=== PATIENT | female | born 1960 | race African-American/Black ===

== ENCOUNTER 2021-02-10 09:47 | Inpatient (IN) ==
[2021-02-10 11:01] LABS: Basophils % 0.4 % (0.0-0.8); Eosinophils # 0.2 10*3/uL (0.0-0.87); Eosinophils % 2.7 % (0.00-10.9); Hematocrit 34.5 VOL% (35.7-47.0); Hemoglobin 11.3 GM/DL (12.0-16.0); Immature Granulocytes % 0.3 %; Immature Granulocytes Absolute 0.02 #; Lymphocytes % 29.1 % (21.3-54.2); Mean Corpuscular HGB Conc 32.8 GM/DL (32-36); Mean Corpuscular Volume 94.3 FL (87-102); Mean Platelet Volume 11.4 FL (9.6-12.0); Monocytes % 9.5 % (1.7-12.7); Platelet Count 277 T/CUMM (130-400); Red Blood Count 3.66 MC/CUMM (3.8-5.5); Red Cell Distribution Width 12.3 % (9.3-17.3); White Blood Count 6.9 T/CUMM (4-12)
[2021-02-10 11:14] LABS: Albumin 3.9 G/DL (3.4-5.0); Bilirubin,Total 0.6 MG/DL (0.20-1.00); Osmolality,Calculated 266.1 MOS/KG (273-304); Potassium 3.8 MMOL/L (3.5-5.1); Total Protein 8.6 G/DL (6.4-8.2)
[2021-02-10] MEDS ORDERED: FAMOTIDINE 20 MG TABLET ONE (13:37)
[2021-02-10] MEDS ORDERED: FAMOTIDINE 20 MG TABLET PO STA (13:39)
[2021-02-10] MEDS ORDERED: LIDOCAINE 2% 5 ML VIAL ONE (13:46)
[2021-02-10] MEDS ORDERED: propofoL 200 MG/20 ML VIAL IV ONE (13:46)
[2021-02-10] MEDS ORDERED: ONDANSETRON 4 MG/2 ML VIAL ONE (13:46)
[2021-02-10] MEDS ORDERED: MIDAZOLAM 2 MG/2 ML VIAL ONE (13:48)
[2021-02-10] MEDS ORDERED: fentaNYL 100 MCG/2 ML VIAL ONE (13:48)
[2021-02-10] MEDS ORDERED: SEVOFLURANE 1 UNIT/15 MINUTE INH ONE ×2 (13:55→14:45)
[2021-02-10] MEDS ORDERED: DEXAMETHASONE 4 MG/1 ML VIAL ONE ×2 (13:55→14:44)
[2021-02-10] MEDS ORDERED: ACETAMINOPHEN INJ 1,000 MG/100 ML VIAL IV ONE (14:23)
[2021-02-10] MEDS ORDERED: KETOROLAC 30 MG/1 ML VIAL ONE (14:23)
[2021-02-10] MEDS ORDERED: ePHEDrine 50 MG/ML VIAL ONE (14:35)
[2021-02-10] MEDS ORDERED: LACTATED RINGERS 1,000 ML IV ONE (14:45)
[2021-02-10] MEDS ORDERED: BUPIVACAINE LIPOSOMAL 20 ML/266 MG VIAL ONE (14:49)
[2021-02-10] MEDS ORDERED: ACETAMINOPHEN 325 MG TABLET PO PRN (15:05)
[2021-02-10] MEDS ORDERED: HYDROmorphone 2 MG/1 ML VIAL IV PRN (15:05)
[2021-02-11 05:22] LABS: Basophils % 0.1 % (0.0-0.8); Hematocrit 31.2 VOL% (35.7-47.0); Hemoglobin 10.4 GM/DL (12.0-16.0); Immature Granulocytes % 0.4 %; Immature Granulocytes Absolute 0.04 #; Lymphocytes # 1.3 10*3/uL (1.4-4.0); Mean Corpuscular HGB Conc 33.3 GM/DL (32-36); Mean Corpuscular Volume 93.4 FL (87-102); Mean Platelet Volume 11.8 FL (9.6-12.0); Monocytes % 6.8 % (1.7-12.7); Neutrophils % 79.7 % (38.7-73.9); Platelet Count 258 T/CUMM (130-400); Red Blood Count 3.34 MC/CUMM (3.8-5.5); Red Cell Distribution Width 12.2 % (9.3-17.3); White Blood Count 9.8 T/CUMM (4-12)
[2021-02-11 05:44] LABS: Calcium 8.6 MG/DL (8.5-10.1); Osmolality,Calculated 270.8 MOS/KG (273-304); Potassium 3.8 MMOL/L (3.5-5.1)
[2021-02-11 11:42] VITALS: BP 100/51
== END 2021-02-11 13:40 | disposition home or self-care (01) | DRG 607 ==
LOC: N.ED 09:47 → N.EDINP 15:05 → N.3E 15:15
PROVIDERS: ADMIT Student in an Organized Health Care Education/Training Program; ATTEND Student in an Organized Health Care Education/Training Program

== ENCOUNTER 2022-06-11 01:44 | Inpatient (IN) ==
[2022-06-11] MEDS ORDERED: HYDROmorphone 1 MG/1 ML SYRINGE IV STA (02:17)
[2022-06-11] MEDS ORDERED: SODIUM CHLORIDE 0.9% 1,000 ML IV STA (02:17)
[2022-06-11] MEDS ORDERED: ONDANSETRON 4 MG/2 ML VIAL IV STA (02:17)
[2022-06-11 03:03] LABS: Basophils % 0.2 % (0.0-0.8); Eosinophils % 0.1 % (0.00-10.9); Hemoglobin 8.4 GM/DL (12.0-16.0); Immature Granulocytes Absolute 0.51 #; Lymphocytes # 1.1 10*3/uL (1.4-4.0); Lymphocytes % 4.1 % (21.3-54.2); Mean Corpuscular HGB Conc 32.3 GM/DL (32-36); Mean Corpuscular Volume 74.7 FL (87-102); Monocytes % 7.5 % (1.7-12.7); Neutrophils % 86.1 % (38.7-73.9); Platelet Count 347 T/CUMM (130-400); Red Blood Count 3.48 MC/CUMM (3.8-5.5); Red Cell Distribution Width 17.5 % (9.3-17.3); White Blood Count 25.8 T/CUMM (4-12)
[2022-06-11 03:21] LABS: Band Neutrophils 1 % (0-10); Lymphocytes 1 % (20-55); Total Cells Counted 100
[2022-06-11 03:22] LABS: Hypochromia 1+; Microcytosis 1+; Platelet Estimate Adequate
[2022-06-11 03:45] LABS: Albumin 2.5 G/DL (3.4-5.0); Bilirubin,Total 1.3 MG/DL (0.20-1.00); Calcium 8.1 MG/DL (8.5-10.1); Osmolality,Calculated 259.8 MOS/KG (273-304); Potassium 3.5 MMOL/L (3.5-5.1); Total Protein 6.7 G/DL (6.4-8.2)
[2022-06-11 04:35] LABS: Mucus,Urine Occasional /LPF (Occasional); RBC,Urine 4 /HPF (0-4); Squamous Epithelial Cell,Urine Occasional /HPF (0-10); Urine Appearance Clear (Clear); Urine Color Yellow (Yellow); Urine Specific Gravity < 1.005 (1.001-1.035); Urine pH 5.5 (4.5-8.0)
[2022-06-11 04:36] LABS: Bilirubin,Urine Negative (Negative); Blood, Urine Large mg/dL (Negative); Glucose,Urine (UA) Negative (Negative); Ketones,Urine 15 mg/dL (Negative); Nitrite,Urine Negative (Negative); Protein,Urine 100 mg/dL (Negative)
[2022-06-11] MEDS ORDERED: cefTRIAXone 1,000 MG in SODIUM CHLORIDE 0.9% 100 ML IV STA (04:44)
[2022-06-11] MEDS ORDERED: PIPERACILLIN/TAZOBACTAM 3,375 MG in SODIUM CHLORIDE 0.9% 100 ML IV STA (04:51)
[2022-06-11] MEDS ORDERED: ACETAMINOPHEN 325 MG TABLET PO PRN (05:36)
[2022-06-11] MEDS ORDERED: MORPHINE 2 MG/1 ML SYRINGE IV PRN (05:36)
[2022-06-11] MEDS ORDERED: ONDANSETRON 4 MG/2 ML VIAL IV PRN (05:36)
[2022-06-11] MEDS ORDERED: HYDROmorphone 1 MG/1 ML SYRINGE IV PRN (05:36)
[2022-06-11] MEDS: SODIUM CHLORIDE 0.9% 1,000 ML IV SCH (06:20)
[2022-06-11 07:08] LABS: PT Patient Result 10.9 SECS (10.1-12.1); Partial Thromboplastin Time 28.3 SECS (23.7-32.9)
[2022-06-11] MEDS: methylPREDNISolone SOD SUC 125 MG/2 ML VIAL IV SCH ×2 (10:16→22:02)
[2022-06-11] MEDS: PANTOPRAZOLE 40 MG VIAL IV SCH ×2 (10:19→22:01)
[2022-06-11 12:05] LABS: Hematocrit 22.7 VOL% (35.7-47.0); Hemoglobin 7.2 GM/DL (12.0-16.0)
[2022-06-11] MEDS: PIPERACILLIN/TAZOBACTAM 3,375 MG in SODIUM CHLORIDE 0.9% 100 ML IV SCH (14:00)
[2022-06-11] MEDS ORDERED: SODIUM CHLORIDE 0.9% 1,000 ML IV PRN (16:55)
[2022-06-11] MEDS: BISACODYL 5 MG TABLET PO SCH (17:42)
[2022-06-11] MEDS ORDERED: POLYETHYLENE GLYCOL POWDER 255 GM BOTTLE PO ONE (18:00)
[2022-06-11] MEDS ORDERED: MAGNESIUM HYDROXIDE SUSP 30 ML UDCUP PO ONE (21:00)
[2022-06-12] MEDS: BISACODYL 5 MG TABLET PO SCH ×2 (02:11→08:26)
[2022-06-12] MEDS: SODIUM CHLORIDE 0.9% 1,000 ML IV SCH ×5 (02:23→13:18)
[2022-06-12] MEDS: PIPERACILLIN/TAZOBACTAM 3,375 MG in SODIUM CHLORIDE 0.9% 100 ML IV SCH ×3 (02:24→17:38)
[2022-06-12 05:35] LABS: Basophils % 0.2 % (0.0-0.8); Hematocrit 29.4 VOL% (35.7-47.0); Hemoglobin 9.5 GM/DL (12.0-16.0); Immature Granulocytes % 1.1 %; Immature Granulocytes Absolute 0.16 #; Lymphocytes # 0.9 10*3/uL (1.4-4.0); Lymphocytes % 6.1 % (21.3-54.2); Mean Corpuscular HGB Conc 32.3 GM/DL (32-36); Mean Corpuscular Volume 79.5 FL (87-102); Monocytes # 0.7 10*3/uL (0.11-0.8); Monocytes % 4.3 % (1.7-12.7); Neutrophils % 88.3 % (38.7-73.9); Platelet Count 303 T/CUMM (130-400); Red Cell Distribution Width 18.9 % (9.3-17.3)
[2022-06-12 06:04] LABS: Albumin 2.1 G/DL (3.4-5.0); Bilirubin,Total 1.7 MG/DL (0.20-1.00); Calcium 7.9 MG/DL (8.5-10.1); Osmolality,Calculated 276.7 MOS/KG (273-304); Potassium 3.1 MMOL/L (3.5-5.1); Total Protein 6.6 G/DL (6.4-8.2)
[2022-06-12] MEDS: methylPREDNISolone SOD SUC 125 MG/2 ML VIAL IV SCH ×2 (08:19→21:27)
[2022-06-12] MEDS: PANTOPRAZOLE 40 MG VIAL IV SCH ×2 (08:19→21:26)
[2022-06-12] MEDS ORDERED: LACTATED RINGERS 1,000 ML IV SCH (09:00)
[2022-06-12] MEDS ORDERED: LIDOCAINE 2% 5 ML VIAL ONE (09:17)
[2022-06-12] MEDS ORDERED: propofoL 200 MG/20 ML VIAL IV ONE (09:17)
[2022-06-12] MEDS ORDERED: POTASSIUM CHLORIDE 20 MEQ TABLET PO ONE ×2 (10:00→15:27)
[2022-06-13] MEDS: SODIUM CHLORIDE 0.9% 1,000 ML IV SCH
[2022-06-13] MEDS: PIPERACILLIN/TAZOBACTAM 3,375 MG in SODIUM CHLORIDE 0.9% 100 ML IV SCH ×2 (01:05→09:42)
[2022-06-13 05:46] LABS: Basophils % 0.2 % (0.0-0.8); Hematocrit 31.1 VOL% (35.7-47.0); Hemoglobin 9.8 GM/DL (12.0-16.0); Immature Granulocytes % 1.1 %; Immature Granulocytes Absolute 0.18 #; Lymphocytes # 1.3 10*3/uL (1.4-4.0); Lymphocytes % 8.3 % (21.3-54.2); Mean Corpuscular HGB Conc 31.5 GM/DL (32-36); Mean Corpuscular Volume 80.4 FL (87-102); Mean Platelet Volume 11.2 FL (9.6-12.0); Monocytes # 0.8 10*3/uL (0.11-0.8); Monocytes % 4.9 % (1.7-12.7); Neutrophils % 85.5 % (38.7-73.9); Platelet Count 344 T/CUMM (130-400); Red Blood Count 3.87 MC/CUMM (3.8-5.5); Red Cell Distribution Width 19.6 % (9.3-17.3); White Blood Count 15.9 T/CUMM (4-12)
[2022-06-13 07:49] VITALS: BP 145/72
[2022-06-13] MEDS: PANTOPRAZOLE 40 MG VIAL IV SCH (09:40)
[2022-06-13] MEDS: methylPREDNISolone SOD SUC 125 MG/2 ML VIAL IV SCH (09:41)
== END 2022-06-13 12:00 | disposition home or self-care (01) | DRG 375 ==
LOC: N.ED 01:44 → N.2E 05:36
PROVIDERS: ADMIT Hospitalist; ATTEND Hospitalist

== ENCOUNTER 2022-06-25 08:57 | Observation (INO) ==
[2022-06-25] MEDS ORDERED: SODIUM CHLORIDE 0.9% 500 ML IV STA (10:13)
[2022-06-25 10:34] LABS: Basophils # 0.1 10*3/uL (0.0-0.2); Basophils % 0.5 % (0.0-0.8); Eosinophils # 0.1 10*3/uL (0.0-0.87); Hematocrit 27.1 VOL% (35.7-47.0); Hemoglobin 8.6 GM/DL (12.0-16.0); Immature Granulocytes % 1.2 %; Immature Granulocytes Absolute 0.12 #; Lymphocytes % 10.4 % (21.3-54.2); Mean Corpuscular HGB Conc 31.7 GM/DL (32-36); Mean Corpuscular Volume 84.7 FL (87-102); Mean Platelet Volume 10.1 FL (9.6-12.0); Monocytes # 0.7 10*3/uL (0.11-0.8); Monocytes % 7.3 % (1.7-12.7); Neutrophils % 79.6 % (38.7-73.9); Platelet Count 416 T/CUMM (130-400); Red Cell Distribution Width 20.1 % (9.3-17.3); White Blood Count 9.81 T/CUMM (4-12)
[2022-06-25 10:44] LABS: PT Patient Result 11.1 SECS (10.1-12.1)
[2022-06-25 11:05] LABS: Albumin 2.4 G/DL (3.4-5.0); Bilirubin,Total 0.6 MG/DL (0.20-1.00); Calcium 8.6 MG/DL (8.5-10.1); Potassium 3.1 MMOL/L (3.5-5.1)
[2022-06-25 11:31] LABS: Microcytosis Slight; Platelet Estimate Normal
[2022-06-25] MEDS ORDERED: SODIUM CHLORIDE 0.9% 1,000 ML IV PRN (12:23)
[2022-06-25] MEDS ORDERED: ONDANSETRON 4 MG/2 ML VIAL IV PRN (12:36)
[2022-06-25] MEDS ORDERED: ACETAMINOPHEN 325 MG TABLET PO PRN (12:36)
[2022-06-25] MEDS ORDERED: POTASSIUM CHLORIDE 20 MEQ TABLET PO STA (12:37)
[2022-06-26 04:54] LABS: Basophils % 0.4 % (0.0-0.8); Eosinophils # 0.2 10*3/uL (0.0-0.87); Eosinophils % 3.2 % (0.00-10.9); Immature Granulocytes Absolute 0.07 #; Lymphocytes # 0.9 10*3/uL (1.4-4.0); Mean Corpuscular HGB Conc 33.3 GM/DL (32-36); Mean Corpuscular Volume 84.5 FL (87-102); Mean Platelet Volume 10.8 FL (9.6-12.0); Monocytes # 0.8 10*3/uL (0.11-0.8); Monocytes % 10.7 % (1.7-12.7); Neutrophils % 71.7 % (38.7-73.9); Platelet Count 314 T/CUMM (130-400); Red Blood Count 3.55 MC/CUMM (3.8-5.5); Red Cell Distribution Width 17.9 % (9.3-17.3); White Blood Count 7.21 T/CUMM (4-12)
[2022-06-26 05:12] LABS: Calcium 7.9 MG/DL (8.5-10.1); Osmolality,Calculated 272.7 MOS/KG (273-304); Potassium 4.1 MMOL/L (3.5-5.1)
[2022-06-26] MEDS: ROSUVASTATIN 10 MG TABLET PO SCH (09:22)
[2022-06-26] MEDS ORDERED: DIAZEPAM 5 MG TABLET PO ONE (12:37)
[2022-06-26] MEDS ORDERED: fentaNYL 100 MCG/2 ML VIAL IV ONE (12:37)
[2022-06-26] MEDS ORDERED: MIDAZOLAM 10 MG/2 ML VIAL IV ONE (12:37)
[2022-06-26] MEDS ORDERED: SODIUM CHLORIDE 0.45% 1,000 ML IV SCH (13:00)
[2022-06-26] MEDS ORDERED: HEPARIN/NACL 0.9% 2 UNITS/ML 6,000 UNIT/3,000 ML BAG IV ONE (13:17)
[2022-06-26] MEDS ORDERED: MIDAZOLAM 2 MG/2 ML VIAL ONE (14:09)
[2022-06-26 16:23] LABS: Mucus,Urine Occasional /LPF (Occasional); RBC,Urine <1 /HPF (0-4)
[2022-06-26 16:24] LABS: Bilirubin,Urine Negative (Negative); Blood, Urine Trace mg/dL (Negative); Glucose,Urine (UA) Negative (Negative); Ketones,Urine 15 mg/dL (Negative); Nitrite,Urine Negative (Negative); Protein,Urine Negative (Negative); Urine Appearance Clear (Clear); Urine Color Yellow (Yellow); Urine Specific Gravity 1.015 (1.001-1.035)
[2022-06-26] MEDS ORDERED: TAMOXIFEN 10 MG TABLET PO SCH ×2 (16:30→21:00)
[2022-06-26] MEDS: TRANEXAMIC ACID TAB 650 MG TABLET PO SCH (21:48)
[2022-06-27 07:52] LABS: Basophils % 0.4 % (0.0-0.8); Eosinophils # 0.1 10*3/uL (0.0-0.87); Eosinophils % 1.7 % (0.00-10.9); Hematocrit 30.5 VOL% (35.7-47.0); Hemoglobin 10.3 GM/DL (12.0-16.0); Immature Granulocytes % 0.5 %; Immature Granulocytes Absolute 0.04 #; Lymphocytes # 0.9 10*3/uL (1.4-4.0); Lymphocytes % 10.2 % (21.3-54.2); Mean Corpuscular HGB Conc 33.8 GM/DL (32-36); Mean Corpuscular Volume 84.5 FL (87-102); Mean Platelet Volume 10.2 FL (9.6-12.0); Monocytes # 0.9 10*3/uL (0.11-0.8); Monocytes % 11.1 % (1.7-12.7); Neutrophils % 76.1 % (38.7-73.9); Platelet Count 294 T/CUMM (130-400); Red Blood Count 3.61 MC/CUMM (3.8-5.5); Red Cell Distribution Width 18.1 % (9.3-17.3); White Blood Count 8.36 T/CUMM (4-12)
[2022-06-27 08:05] VITALS: BP 94/61
[2022-06-27] MEDS: TRANEXAMIC ACID TAB 650 MG TABLET PO SCH (09:18)
[2022-06-27] MEDS: ROSUVASTATIN 10 MG TABLET PO SCH (09:19)
== END 2022-06-27 11:38 | disposition home or self-care (01) ==
LOC: N.ED 08:57 → N.EDINP 08:57 → N.TELES 14:02
PROVIDERS: ADMIT Hospitalist; ATTEND Hospitalist
PROC: IRAGMES (2022-06-26 14:50)